=== PATIENT | female | born 1985 | race Two or more races ===

== ENCOUNTER 2024-03-12 18:53 | Emergency (ER) | payer MEDICAID, OTHER ==
[~2024-03-12] VITALS: Ht 157.5 cm; Wt 88.6 kg
[2024-03-12 19:10] VITALS: BP 104/82; PULSE 95; RESP 22; O2SAT 100
[2024-03-12 20:56] VITALS: TEMP 103.1
[2024-03-12] MEDS: ACETAMINOPHEN 325 MG TAB PO ONE (20:56)
[2024-03-12 20:58] LABS: COVID19 ANTIGEN SOFIA FIA NEGATIVE (NEGATIVE); Rapid Influenza A Negative (Negative); Rapid Influenza B Negative (Negative)
--- NOTE | 2024-03-12 21:11 | ED.PDOC ---
History of Present Illness HPI Comments 35-year-old female presents with mother for complaint of cough, congestion, fever, chills, and generalized body aches for the past 2 days, today. Patient endorses on unprovoked onset of persisting symptoms. She comments on her mother presenting with similar symptoms at home as well, currently, for same duration of time. Patient denies having any shortness of breath, nausea, vomiting, urinary symptoms, associated symptoms or modifying us at this time. Chief Complaint: Flu like Time Seen by MD: 19:00 Reviewed Notes: Nurses Notes, Medications, Allergies Information Source: Patient Mode of Arrival: Ambulatory Severity: Moderate Timing: Days Duration: Since onset Prehospital treatment: None Past Medical History Past Medical History (Other): Obesity Surgical History: Denies all surgeries INSPECTING AND TESTING LEAD HAND History: Denies all INSPECTING AND TESTING LEAD HAND Hx Family History Family History: Unknown Social History Smoker: Non-Smoker Alcohol: Denies ETOH Use Drugs: Denies Drug Use Lives In: Home Constitutional: reports: chills, fever EENTM: reports: others (Congestion) Respiratory: reports: cough Musculoskeletal: reports: others (Generalized body aches) All Other Systems: Reviewed and Negative (Negative unless otherwise stated above or in HPI) Physical Exam General Appearance: No Apparent Distress, Obese HEENT: Normal ENT Inspection, Pharynx Normal, TMs Normal Neck: Full Range of Motion, Non-Tender, Normal, Normal Inspection Respiratory: Chest Non-Tender, Lungs Clear, No Accessory Muscle Use, No Respiratory Distress, Normal Breath Sounds Cardiovascular: No Edema, No JVD, No Murmur, No Gallop, Normal Peripheral Pulses, Regular Rate/Rhythm Breast Exam: Deferred Gastrointestinal: No Organomegaly, Non Tender, No Pulsatile Mass, Normal Bowel Sounds, Soft Genitalia: Deferred Pelvic: Deferred Rectal: Deferred Extremities: No calf tenderness, Normal capillary refill, Normal inspection, Normal range of motion, Non-tender, No pedal edema Musculoskeletal : Apperance: Normal Neurologic: Alert, mitigation supervisor II-XII nml as Tested, No Motor Deficits, Normal Affect, Normal Mood, No Sensory Deficits Cerebellar Function: Normal Reflexes: Normal Skin: Dry, Normal Color, Warm Lymphatic: No Adenopathy Was a procedure done? Was a procedure done?: No Differential Dx Considerations may include: Syndrome, URI, UTI, pleural effusion, pneumonia, COVID 19, bronchitis, influenza X-Ray, Labs, Meds, VS Vital Signs Date Time Temp Pulse Resp B/P (MAP) Pulse Ox O2 Delivery O2 Flow Rate FiO2 03/12/24 20:56 103.1 03/12/24 19:10 102.0 95 22 104/82 (89) 100 Lab Test 03/12/24 19:06 Range/Units Influenza Type A Antigen Negative Negative Influenza Type B Antigen Negative Negative SARS-CoV-2 Antigen (Rapid) Negative NEGATIVE Current Medications Medications (Trade) Dose Ordered Sig/Joy Route Start Time Stop Time Status Last Admin Acetaminophen (Tylenol Tablet) 1,000 mg ONCE ONCE PO 03/12/24 19:15 03/12/24 19:16 DC 03/12/24 20:56 X-Ray, Labs, Meds, VS Comment Imaging: X-rays and CT scans were reviewed and interpreted by this provider, imaging shows no fractures and no pathological disease. Pending radiology review. Laboratory: Labs reviewed and interpreted by this provider. No significant abnormalities noted. Patient has prior medical visits reviewed. Med reconciliation performed Vital signs reviewed [facility] stable upon reassessment Time of 1ST Reevaluation: 19:30 Reevaluation 1ST: Unchanged Patient Education/Counseling: Diagnosis, Treatment, Need For Follow Up (Patient advised to follow-up in the emergency room in the next 24 to 48 hours if symptoms do not improve. Advised follow-up with PCP in the next 3 to 5 days. Patient verbalized understanding. ) Family Education/Counseling: Diagnosis, Treatment Departure 1 Departure Time of Disposition: 21:40 Impression: Primary Impression: Viral illness Additional Impression: Syncopal episodes Qualified Codes: R55 - Syncope and collapse Disposition: HOME / SELF CARE / HOMELESS Condition: Fair e-Prescriptions Acetaminophen (Acetaminophen) 500 Mg Tab 500 MG PO QID PRN, #60 TAB Prov: KALLI RAMÍREZ 03/12/24 Montelukast Sodium (Singulair) 10 Mg Tab 10 MG PO DAILY PRN, #20 TAB Prov: KALLI RAMÍREZP 03/12/24 Promethazine-Dm (Promethazine Dm 6.25-15 mg/5Ml) 1 Juani Juani 5 ML PO TID PRN, #240 ML Prov: KALLI RAMÍREZ 03/12/24 Discharged With: Self Critical Care Note Critical Care Time?: No Stability Stability form required: No Heart Score Heart Score: Heart Score Response (Comments) Value History N/A 0 EKG N/A 0 Age N/A 0 Risk Factors N/A 0 Troponin N/A 0 Total 0 I personally scribed for KALLI RAMÍREZ ([email or web address]) on 03/12/24 at 21:11. Electronically submitted by Sonu Bradley ([email or web address]). KALLI RAMÍREZ Mar 12, 2024 21:11
[2024-03-12] MEDS ORDERED: SODIUM CHLORIDE 0.9% 1,000 ML IV ONE (21:15)
[2024-03-12] MEDS ORDERED: MONT10TA23 PO (21:43)
[2024-03-12] MEDS ORDERED: PROM1SOL4 PO (21:43)
[2024-03-12] MEDS ORDERED: ACET500T58 PO (21:43)
== END 2024-03-12 22:40 | disposition home or self-care (01) ==
LOC: ER 18:53 → EDBD 18:53 → ER 22:40
DX: B34.9 Viral infection, unspecified (principal); R55 Syncope and collapse; E66.9 Obesity, unspecified; Z68.35 Body mass index [BMI] 35.0-35.9, adult; Z20.822 Contact with and (suspected) exposure to COVID-19
CPT/HCPCS: 36415; 87426; 87804